=== PATIENT | female | born 1950 | race Caucasian/White ===

== ENCOUNTER 2021-09-24 14:06 | Inpatient (IN) | payer OTHER, MEDICAID ==
[~2021-09-24] VITALS: Ht 167.6 cm; Wt 76.8 kg
[2021-09-24] MEDS ORDERED: IOHEXOL 350 MG/ML 100ML IJ ONE (15:23)
[2021-09-24 15:52] LABS: Basophils # (auto) 0.2 10 ^3/uL (0-0.2); Lymphocytes # (auto) 0.7 10 ^3/uL (0.4-5.4); Monocytes # (auto) 0.3 10 ^3/uL (0-1.3)
[2021-09-24 15:53] LABS: Eosinophils # (auto) 0.2 10 ^3/uL (0-0.8); Eosinophils % (auto) 3.3 % (0.0-7.0); Hematocrit 36.6 % (36.0-46.0); Hemoglobin 11.8 g/dL (12.2-16.2); Lymphocytes % (auto) 10.9 % (10.0-50.0); Mean Corpuscular Hemoglobin 25.3 pg (28.0-32.0); Mean Corpuscular Hgb Conc. 32.1 g/dL (32.0-36.0); Mean Corpuscular Volume 78.6 fL (80.0-100.0); Monocytes % (auto) 4.2 % (0.0-12.0); Neutrophils # (auto) 4.9 10 ^3/uL (1.6-8.6); Neutrophils % (auto) 78.6 % (37.0-80.0); Red Blood Cells 4.65 10^6/uL (4.0-5.20); Red Cell Distribution Width 17.7 % (11.8-14.3); White Blood Cell 6.3 10^3/uL (4.4-10.8)
[2021-09-24 15:59] LABS: Albumin 2.9 g/dL (3.4-5.0); BUN/Creatinine Ratio 9.4; Calcium 8.6 mg/dL (8.5-10.1); Potassium 4.1 mmol/L (3.5-5.1)
[2021-09-24 16:02] LABS: Bilirubin, Total 0.5 mg/dL (0.2-1.0); Total Protein 7.6 g/dL (6.4-8.2)
[2021-09-24] MEDS ORDERED: HYDROcodone-ACET 10/325MG TAB PO ONE (17:00)
[2021-09-24 18:45] LABS: Urine Bacteria NONE SEEN /hpf (None Seen); Urine Blood TRACE /uL (Negative); Urine Mucus FEW (None Seen); Urine WBC 77 /hpf (0 - 5)
[2021-09-24 19:02] LABS: Urine Specific Gravity > 1.050 (1.001-1.035)
[2021-09-24] MEDS ORDERED: DOCUSATE SOD 100 MG CAP PO PRN (21:45)
[2021-09-24] MEDS ORDERED: HYDROcodone-ACET 5/325MG TAB PO PRN (21:45)
[2021-09-24] MEDS ORDERED: ACETAMINOPHEN 325 MG TAB PO PRN (21:45)
[2021-09-24] MEDS ORDERED: NITROGLYCERIN 0.4 MG SL TAB SL PRN (22:00)
[2021-09-24] MEDS: SODIUM CHLOR 0.9% PF (SALINE LOCK) 10ML VIAL/SYR IV SCH (22:14)
[2021-09-24] MEDS: MORPHINE SULFATE INJECTION 2 MG/ML SYRG IV PRN (22:47)
[2021-09-24 23:37] VITALS: BP 122/48
[2021-09-25] MEDS: ONDANSETRON HCL 4 MG/2 ML VIAL IV PRN ×3 (00:40→16:50)
[2021-09-25] MEDS ORDERED: AMIT75TA62 PO (02:54)
[2021-09-25] MEDS ORDERED: LEVO125T7 PO (02:54)
[2021-09-25] MEDS ORDERED: SERT50TA19 PO (02:54)
[2021-09-25] MEDS ORDERED: GABA300C10 PO (02:54)
[2021-09-25] MEDS ORDERED: ATOR10TA52 PO (02:54)
[2021-09-25] MEDS ORDERED: OXYC15TA PO (02:54)
[2021-09-25] MEDS ORDERED: QUET100T47 PO (02:54)
[2021-09-25] MEDS ORDERED: OMEP20TA PO (02:56)
[2021-09-25] MEDS ORDERED: SUMA50TA2 PO (02:56)
[2021-09-25] MEDS ORDERED: BISM1CHW5 PO (02:56)
[2021-09-25] MEDS: MORPHINE SULFATE 4 MG/ML SYR/VIAL IV PRN ×4 (03:06→21:44)
[2021-09-25] MEDS: SODIUM CHLOR 0.9% PF (SALINE LOCK) 10ML VIAL/SYR IV SCH ×3 (05:57→21:43)
[2021-09-25 06:51] LABS: Basophils # (auto) 0 10 ^3/uL (0-0.2); Eosinophils # (auto) 0.4 10 ^3/uL (0-0.8)
[2021-09-25 06:55] LABS: Basophils % (auto) 0.7 % (0.0-2.0); Eosinophils % (auto) 6.2 % (0.0-7.0); Hematocrit 33.7 % (36.0-46.0); Hemoglobin 10.9 g/dL (12.2-16.2); Lymphocytes # (auto) 1.5 10 ^3/uL (0.4-5.4); Lymphocytes % (auto) 21.4 % (10.0-50.0); Mean Corpuscular Hemoglobin 25.4 pg (28.0-32.0); Mean Corpuscular Hgb Conc. 32.4 g/dL (32.0-36.0); Mean Corpuscular Volume 78.3 fL (80.0-100.0); Monocytes # (auto) 0.4 10 ^3/uL (0-1.3); Monocytes % (auto) 6.1 % (0.0-12.0); Neutrophils # (auto) 4.6 10 ^3/uL (1.6-8.6); Neutrophils % (auto) 65.6 % (37.0-80.0); Red Cell Distribution Width 18.3 % (11.8-14.3)
[2021-09-25 07:01] LABS: Albumin 2.8 g/dL (3.4-5.0); Calcium 8.4 mg/dL (8.5-10.1); Potassium 4.1 mmol/L (3.5-5.1)
[2021-09-25 07:04] LABS: Bilirubin, Total 0.4 mg/dL (0.2-1.0); Total Protein 7.1 g/dL (6.4-8.2)
[2021-09-25 08:46] VITALS: BP 124/66
[2021-09-25] MEDS: FAMOTIDINE (10MG/ML) 2ML VL IV SCH (10:03)
[2021-09-25] MEDS: levoFLOXacin 500MG 100 ML IV SCH (10:09)
[2021-09-25] MEDS ORDERED: ONDA-144 PO (10:41)
[2021-09-25] MEDS ORDERED: TIOT1AER IN (10:41)
[2021-09-25] MEDS ORDERED: POTA10TA51 PO (10:41)
[2021-09-25] MEDS ORDERED: PRED20TA2 PO (10:41)
[2021-09-25] MEDS ORDERED: AMIT10TA8 PO (10:41)
[2021-09-25] MEDS ORDERED: ALBUAER3 IN (10:41)
[2021-09-25] MEDS ORDERED: PRE1T PO (10:41)
[2021-09-25] MEDS ORDERED: BACL10TA PO (10:55)
[2021-09-25] MEDS ORDERED: LOPE1TAB9 PO (10:55)
[2021-09-25 12:40] VITALS: BP 100/59
[2021-09-25] MEDS ORDERED: BACLOFEN 10 MG TAB PO PRN (16:00)
[2021-09-25 16:40] VITALS: BP 134/67
[2021-09-25] MEDS: AMITRIPTYLINE HCL 25 MG TAB PO SCH (21:43)
[2021-09-25] MEDS: QUEtiapine FUMARATE 25 MG TAB PO SCH (21:43)
[2021-09-25] MEDS: SERTRALINE HCL 50 MG TAB PO SCH (21:43)
[2021-09-25 22:00] VITALS: BP 113/64
[2021-09-26 05:00] VITALS: BP 135/67
[2021-09-26] MEDS: SODIUM CHLOR 0.9% PF (SALINE LOCK) 10ML VIAL/SYR IV SCH ×3 (06:27→22:11)
[2021-09-26] MEDS: LEVOTHYROXINE SODIUM 50 MCG TAB PO SCH (06:28)
[2021-09-26 09:00] VITALS: BP 119/64
[2021-09-26] MEDS: MORPHINE SULFATE 4 MG/ML SYR/VIAL IV PRN ×3 (09:02→19:03)
[2021-09-26] MEDS: FAMOTIDINE (10MG/ML) 2ML VL IV SCH (09:30)
[2021-09-26] MEDS: levoFLOXacin 500MG 100 ML IV SCH (09:30)
[2021-09-26 13:00] VITALS: BP 163/92
[2021-09-26 16:00] VITALS: BP 109/49
[2021-09-26 17:30] VITALS: BP 109/49
[2021-09-26] MEDS: QUEtiapine FUMARATE 25 MG TAB PO SCH (22:00)
[2021-09-26] MEDS: AMITRIPTYLINE HCL 25 MG TAB PO SCH (22:12)
[2021-09-26] MEDS: SERTRALINE HCL 50 MG TAB PO SCH (22:12)
[2021-09-26 22:36] VITALS: BP 120/48
[2021-09-27] MEDS: MORPHINE SULFATE 4 MG/ML SYR/VIAL IV PRN ×4 (02:33→21:41)
[2021-09-27 04:50] VITALS: BP 125/53
[2021-09-27] MEDS: SODIUM CHLOR 0.9% PF (SALINE LOCK) 10ML VIAL/SYR IV SCH ×3 (06:50→21:41)
[2021-09-27] MEDS: LEVOTHYROXINE SODIUM 50 MCG TAB PO SCH (06:51)
[2021-09-27] MEDS: FAMOTIDINE (10MG/ML) 2ML VL IV SCH (09:21)
[2021-09-27] MEDS: levoFLOXacin 500MG 100 ML IV SCH (09:21)
[2021-09-27 09:24] VITALS: BP 121/63
[2021-09-27 12:38] VITALS: BP 103/56
[2021-09-27] MEDS ORDERED: PANTOPRAZOLE 40 MG/10 ML VIAL INJ IV ONE (14:00)
[2021-09-27 17:00] VITALS: BP 111/63
[2021-09-27] MEDS: PANTOPRAZOLE 40 MG/10 ML VIAL INJ IV SCH (21:41)
[2021-09-27] MEDS: AMITRIPTYLINE HCL 25 MG TAB PO SCH (21:42)
[2021-09-27] MEDS: SERTRALINE HCL 50 MG TAB PO SCH (21:42)
[2021-09-27] MEDS: QUEtiapine FUMARATE 25 MG TAB PO SCH (21:43)
[2021-09-27 22:00] VITALS: BP 103/56
[2021-09-28 05:00] VITALS: BP 134/61
[2021-09-28] MEDS: MORPHINE SULFATE 4 MG/ML SYR/VIAL IV PRN ×5 (05:45→19:53)
[2021-09-28] MEDS: SODIUM CHLOR 0.9% PF (SALINE LOCK) 10ML VIAL/SYR IV SCH ×3 (06:15→22:48)
[2021-09-28] MEDS: LEVOTHYROXINE SODIUM 50 MCG TAB PO SCH (06:16)
[2021-09-28 06:38] LABS: INR 1.1 (0.9-1.15); Partial Thromboplastin Time 28.7 sec (23.6-33.0)
[2021-09-28] MEDS: PANTOPRAZOLE 40 MG/10 ML VIAL INJ IV SCH ×2 (08:48→22:48)
[2021-09-28] MEDS: levoFLOXacin 500MG 100 ML IV SCH (08:48)
[2021-09-28 09:00] VITALS: BP 105/64
[2021-09-28] MEDS: MORPHINE SULFATE INJECTION 2 MG/ML SYRG IV PRN (11:46)
[2021-09-28 13:00] VITALS: BP 101/55
[2021-09-28 17:00] VITALS: BP 115/63
[2021-09-28] MEDS: SUCRALFATE 1 GM/10 ML ORAL SUSP PO SCH ×2 (17:00→22:48)
[2021-09-28 22:00] VITALS: BP 115/66
[2021-09-28] MEDS: QUEtiapine FUMARATE 25 MG TAB PO SCH (22:00)
[2021-09-28] MEDS: SERTRALINE HCL 50 MG TAB PO SCH (22:49)
[2021-09-29] MEDS: AMITRIPTYLINE HCL 25 MG TAB PO SCH ×2 (00:42→21:11)
[2021-09-29] MEDS: ONDANSETRON HCL 4 MG/2 ML VIAL IV PRN ×2 (00:43→17:08)
[2021-09-29] MEDS: MORPHINE SULFATE 4 MG/ML SYR/VIAL IV PRN ×6 (00:43→21:12)
[2021-09-29 05:00] VITALS: BP 114/73
[2021-09-29] MEDS: SODIUM CHLOR 0.9% PF (SALINE LOCK) 10ML VIAL/SYR IV SCH ×3 (06:00→21:11)
[2021-09-29] MEDS: SUCRALFATE 1 GM/10 ML ORAL SUSP PO SCH ×5 (07:00→21:11)
[2021-09-29] MEDS: LEVOTHYROXINE SODIUM 50 MCG TAB PO SCH (07:00)
[2021-09-29 08:00] VITALS: BP 119/63
[2021-09-29] MEDS: PANTOPRAZOLE 40 MG/10 ML VIAL INJ IV SCH ×2 (10:27→21:11)
[2021-09-29] MEDS: levoFLOXacin 500MG 100 ML IV SCH (10:27)
[2021-09-29 12:00] VITALS: BP 121/50
[2021-09-29] MEDS ORDERED: fentaNYL CITRATE 100 MCG/2 ML VL ONE (12:54)
[2021-09-29] MEDS ORDERED: MIDAZOLAM HCL 2MG/2ML 2ml VIAL (1mg/ml) ONE (12:54)
[2021-09-29] MEDS ORDERED: DexAMETHasone SOD PHOS 10MG/1ML VIAL INJ ONE (13:05)
[2021-09-29] MEDS ORDERED: PROPOFOL 10 MG/ML 20 ML IV ONE (13:05)
[2021-09-29] MEDS ORDERED: HYDROmorphone HCL 2 MG/ML VL IV PRN (13:15)
[2021-09-29] MEDS ORDERED: ONDANSETRON HCL 4 MG/2 ML VIAL IV PRN (13:15)
[2021-09-29] MEDS ORDERED: LABETALOL HCL 5 MG/ML 4ML SYRINGE IV PRN (13:15)
[2021-09-29] MEDS ORDERED: MORPHINE SULFATE 4 MG/ML SYR/VIAL IV PRN (13:15)
[2021-09-29] MEDS ORDERED: ePHEDrine SULFATE 50 MG/ML AMP IV PRN (13:15)
[2021-09-29] MEDS ORDERED: MIDAZOLAM HCL 2MG/2ML 2ml VIAL (1mg/ml) IV PRN (13:15)
[2021-09-29] MEDS ORDERED: HYDROmorphone HCL 2 MG/ML VL ONE (13:29)
[2021-09-29 17:40] VITALS: BP 105/49
[2021-09-29 21:00] VITALS: BP 129/59
[2021-09-29] MEDS: QUEtiapine FUMARATE 25 MG TAB PO SCH (21:11)
[2021-09-29] MEDS: SERTRALINE HCL 50 MG TAB PO SCH (21:11)
[2021-09-30] MEDS: MORPHINE SULFATE 4 MG/ML SYR/VIAL IV PRN ×4 (03:03→16:06)
[2021-09-30 03:04] VITALS: BP 123/60
[2021-09-30 05:00] VITALS: BP 108/48
[2021-09-30] MEDS: SODIUM CHLOR 0.9% PF (SALINE LOCK) 10ML VIAL/SYR IV SCH ×2 (06:15→14:00)
[2021-09-30] MEDS: LEVOTHYROXINE SODIUM 50 MCG TAB PO SCH (06:15)
[2021-09-30] MEDS: SUCRALFATE 1 GM/10 ML ORAL SUSP PO SCH ×2 (06:15→11:57)
[2021-09-30 09:00] VITALS: BP 104/54
[2021-09-30] MEDS: PANTOPRAZOLE 40 MG/10 ML VIAL INJ IV SCH (09:40)
[2021-09-30] MEDS: levoFLOXacin 500MG 100 ML IV SCH (09:40)
[2021-09-30 13:00] VITALS: BP 118/63
[2021-09-30] MEDS ORDERED: CIP250T GT (13:12)
[2021-09-30] MEDS ORDERED: SUCR1SUS10 PO (13:12)
[2021-09-30] MEDS ORDERED: PANT40TA2 PO (13:13)
[2021-09-30 16:06] VITALS: BP 118/53
== END 2021-09-30 16:30 | disposition home or self-care (01) | DRG 391 ==
LOC: EDBD 14:06 → ER 14:06 → OVERFLOW 21:53 → WEST WING 23:27
PROVIDERS: ADMIT Nurse Practitioner Family; ATTEND Internal Medicine Geriatric Medicine
PROC: 0DB68ZX Excision of Stomach, Via Natural or Artificial Opening Endoscopic, Diagnostic (ICD-10-PCS; principal; 2021-09-29 12:55)
DX: K29.00 Acute gastritis without bleeding (principal); I71.02 Dissection of abdominal aorta; N39.0 Urinary tract infection, site not specified; E44.1 Mild protein-calorie malnutrition; N28.1 Cyst of kidney, acquired; N20.0 Calculus of kidney; Z20.822 Contact with and (suspected) exposure to COVID-19; E88.09 Other disorders of plasma-protein metabolism, not elsewhere classified; J44.9 Chronic obstructive pulmonary disease, unspecified; Z68.27 Body mass index [BMI] 27.0-27.9, adult; Z90.49 Acquired absence of other specified parts of digestive tract; Z98.84 Bariatric surgery status; Z90.710 Acquired absence of both cervix and uterus; Z80.0 Family history of malignant neoplasm of digestive organs; Z87.11 Personal history of peptic ulcer disease; Z87.442 Personal history of urinary calculi; Z88.0 Allergy status to penicillin
CPT/HCPCS: 36415; 71045; 74175; 80053; 81001; 83036; 83690; 84484; 85025; 85610; 85730; 87081; 87086; 93005; 96374; C9113; G0378; J1100; J1956; J2250; J2405; J2704; J3490

== ENCOUNTER 2021-10-15 14:56 | Inpatient (IN) | payer OTHER, MEDICAID ==
[~2021-10-15] VITALS: Ht 167.6 cm; Wt 79.1 kg
[~2021-10-15 14:56] MED LIST: ALBUAER3 IN; AMIT10TA8 PO; ATOR10TA52 PO; BACL10TA PO; BISM1CHW5 PO; CIP250T GT; GABA300C10 PO; LEVO125T7 PO; LOPE1TAB9 PO; OMEP20TA PO; ONDA-144 PO; OXYC15TA PO; PANT40TA2 PO; POTA10TA51 PO; PRED20TA2 PO; QUET100T47 PO; SERT50TA19 PO; SUCR1SUS10 PO; SUMA50TA2 PO; TIOT1AER IN
[2021-10-15] MEDS ORDERED: SODIUM CHLORIDE 0.9% 500 ML IVB ONE (15:15)
[2021-10-15 15:46] LABS: Basophils # (auto) 0 10 ^3/uL (0-0.2); Basophils % (auto) 0.6 % (0.0-2.0); Eosinophils # (auto) 0.1 10 ^3/uL (0-0.8); Eosinophils % (auto) 0.8 % (0.0-7.0); Hematocrit 40.2 % (36.0-46.0); Hemoglobin 12.9 g/dL (12.2-16.2); Lymphocytes # (auto) 0.9 10 ^3/uL (0.4-5.4); Mean Corpuscular Hemoglobin 25.3 pg (28.0-32.0); Mean Corpuscular Hgb Conc. 31.9 g/dL (32.0-36.0); Mean Corpuscular Volume 79.2 fL (80.0-100.0); Monocytes # (auto) 0.5 10 ^3/uL (0-1.3); Monocytes % (auto) 7.2 % (0.0-12.0); Neutrophils # (auto) 4.9 10 ^3/uL (1.6-8.6); Neutrophils % (auto) 77.4 % (37.0-80.0); Nucleated Red Blood Cells % 0.1 %; Red Blood Cells 5.08 10^6/uL (4.0-5.20); Red Cell Distribution Width 18.4 % (11.8-14.3); White Blood Cell 6.4 10^3/uL (4.4-10.8)
[2021-10-15] MEDS ORDERED: MORPHINE SULFATE 4 MG/ML SYR/VIAL IV ONE (16:00)
[2021-10-15] MEDS ORDERED: ONDANSETRON HCL 4 MG/2 ML VIAL IV ONE (16:00)
[2021-10-15 16:03] LABS: Calcium 9.1 mg/dL (8.5-10.1); Potassium 3.2 mmol/L (3.5-5.1)
[2021-10-15 16:08] LABS: BUN/Creatinine Ratio 9.5; Bilirubin, Total 0.5 mg/dL (0.2-1.0); Total Protein 7.5 g/dL (6.4-8.2)
[2021-10-15] MEDS ORDERED: POTASSIUM CHL 20MEQ/100ML 100 ML IV ONE (17:00)
[2021-10-15] MEDS ORDERED: MORPHINE SULFATE INJECTION 2 MG/ML SYRG IV PRN (18:00)
[2021-10-15] MEDS ORDERED: NITROGLYCERIN 0.4 MG SL TAB SL PRN (18:00)
[2021-10-15] MEDS ORDERED: KETOROLAC TROMETH 30 MG/ML 1ML VIAL IV PRN (18:15)
[2021-10-15] MEDS ORDERED: ONDANSETRON HCL 4 MG/2 ML VIAL IV PRN ×2 (18:15→19:30)
[2021-10-15] MEDS ORDERED: SODIUM CHLORIDE 0.9% 1,000 ML IV SCH (18:15)
[2021-10-15] MEDS ORDERED: hydrALAZINE HCL 20 MG/ML VL IV PRN (19:30)
[2021-10-15] MEDS ORDERED: LORazepam 0.5 MG TAB PO PRN (19:30)
[2021-10-15] MEDS ORDERED: DOCUSATE SOD 100 MG CAP PO PRN (19:30)
[2021-10-15] MEDS ORDERED: BACLOFEN 10 MG TAB PO PRN (19:30)
[2021-10-15] MEDS ORDERED: cefTRIAXone 1GM/50ML D5W 50 ML IV ONE (19:30)
[2021-10-15] MEDS ORDERED: PANTOPRAZOLE 40 MG/10 ML VIAL INJ IV ONE (19:30)
[2021-10-15 19:59] LABS: Magnesium 1.6 mg/dL (1.6-2.6); Phosphorus 1.6 mg/dL (2.5-4.90)
[2021-10-15 20:07] LABS: INR 1.13 (0.9-1.15); Partial Thromboplastin Time 27.3 sec (23.6-33.0)
[2021-10-15 20:18] VITALS: BP 135/74
[2021-10-15] MEDS: MORPHINE SULFATE 4 MG/ML SYR/VIAL IV PRN (20:30)
[2021-10-15] MEDS: SODIUM CHLORIDE 0.9% 1,000 ML IV SCH (20:34)
[2021-10-15] MEDS: POTASSIUM CHL 20 Meq TABLET PO SCH (20:34)
[2021-10-15] MEDS: SUCRALFATE 1 GM/10 ML ORAL SUSP PO SCH (20:34)
[2021-10-15] MEDS: ATORVASTATIN 20 MG TAB PO SCH (20:35)
[2021-10-15] MEDS: LABETALOL HCL 200 MG TAB PO SCH (20:35)
[2021-10-15] MEDS: QUEtiapine FUMARATE 100 MG TAB PO SCH (20:35)
[2021-10-15 21:26] VITALS: BP 147/77
[2021-10-15 22:00] VITALS: BP 147/77
[2021-10-15] MEDS ORDERED: IPRATROPIUM BROM 0.5 MG/2.5ML INH SOL NEB SCH (22:00)
[2021-10-15] MEDS ORDERED: ATORVASTATIN 20 MG TAB PO SCH (22:00)
[2021-10-15] MEDS ORDERED: IPRATROPIUM BROM 0.5 MG/2.5ML INH SOL NEB PRN (22:15)
[2021-10-15] MEDS: HYDROcodone-ACET 5/325MG TAB PO PRN (23:34)
[2021-10-16] MEDS: MORPHINE SULFATE 4 MG/ML SYR/VIAL IV PRN ×5 (00:24→20:52)
[2021-10-16 04:52] VITALS: BP 91/49
[2021-10-16] MEDS: LEVOTHYROXINE SODIUM 50 MCG TAB PO SCH (06:10)
[2021-10-16] MEDS: SUCRALFATE 1 GM/10 ML ORAL SUSP PO SCH ×4 (06:10→21:01)
[2021-10-16 06:25] LABS: Basophils # (auto) 0 10 ^3/uL (0-0.2); Basophils % (auto) 0.4 % (0.0-2.0); Eosinophils # (auto) 0.1 10 ^3/uL (0-0.8); Eosinophils % (auto) 3.5 % (0.0-7.0); Hematocrit 32.7 % (36.0-46.0); Hemoglobin 10.4 g/dL (12.2-16.2); Lymphocytes # (auto) 1.2 10 ^3/uL (0.4-5.4); Lymphocytes % (auto) 28.7 % (10.0-50.0); Mean Corpuscular Hemoglobin 25.9 pg (28.0-32.0); Mean Corpuscular Hgb Conc. 31.9 g/dL (32.0-36.0); Mean Corpuscular Volume 81.1 fL (80.0-100.0); Monocytes # (auto) 0.3 10 ^3/uL (0-1.3); Monocytes % (auto) 7.5 % (0.0-12.0); Neutrophils # (auto) 2.5 10 ^3/uL (1.6-8.6); Neutrophils % (auto) 59.9 % (37.0-80.0); Nucleated Red Blood Cells % 0.1 %; Red Blood Cells 4.03 10^6/uL (4.0-5.20); Red Cell Distribution Width 18.5 % (11.8-14.3); White Blood Cell 4.1 10^3/uL (4.4-10.8)
[2021-10-16 06:34] LABS: INR 1.16 (0.9-1.15); Partial Thromboplastin Time 27.6 sec (23.6-33.0)
[2021-10-16 06:44] LABS: Potassium 3.6 mmol/L (3.5-5.1)
[2021-10-16 06:59] LABS: Albumin 2.4 g/dL (3.4-5.0); BUN/Creatinine Ratio 11.1; Bilirubin, Total 0.3 mg/dL (0.2-1.0); CRP High Sensitivity 0.57 mg/dL (< 0.3); Magnesium 1.9 mg/dL (1.6-2.6); Phosphorus 4.7 mg/dL (2.5-4.90)
[2021-10-16 07:08] LABS: Thyroid Stimulating Hormone 0.16 uIU/mL (0.358-3.74)
[2021-10-16 08:00] VITALS: BP 93/36
[2021-10-16 09:00] VITALS: BP 93/36
[2021-10-16] MEDS: cefTRIAXone 1GM/50ML D5W 50 ML IV SCH (09:29)
[2021-10-16] MEDS: SERTRALINE HCL 50 MG TAB PO SCH (09:51)
[2021-10-16] MEDS: PANTOPRAZOLE 40 MG/10 ML VIAL INJ IV SCH (09:51)
[2021-10-16] MEDS: POTASSIUM CHL 20 Meq TABLET PO SCH ×2 (09:51→21:01)
[2021-10-16] MEDS: ASPirin 81 mg TAB PO SCH (09:51)
[2021-10-16] MEDS: GABAPENTIN 300 MG CAP PO SCH (09:51)
[2021-10-16] MEDS: HYDROcodone-ACET 5/325MG TAB PO PRN ×2 (09:52→19:48)
[2021-10-16] MEDS: CHOLECALCIFEROL (VITD3) 2,000 UNIT CAP/TAB PO SCH (09:52)
[2021-10-16] MEDS: ENOXAPARIN SOD 40 MG/0.4 ML SYRINGE SC SCH (09:53)
[2021-10-16] MEDS ORDERED: AMITRIPTYLINE HCL 10 MG TAB PO SCH (10:00)
[2021-10-16] MEDS ORDERED: ASPirin 81 mg TAB PO SCH (10:00)
[2021-10-16] MEDS: LABETALOL HCL 200 MG TAB PO SCH ×2 (10:00→21:02)
[2021-10-16] MEDS: SODIUM CHLORIDE 0.9% 1,000 ML IV SCH ×2 (12:58→21:20)
[2021-10-16 13:00] VITALS: BP 101/39
[2021-10-16] MEDS: AMITRIPTYLINE HCL 25 MG TAB PO SCH (13:00)
[2021-10-16 17:00] VITALS: BP 100/57
[2021-10-16] MEDS: QUEtiapine FUMARATE 100 MG TAB PO SCH (21:01)
[2021-10-16] MEDS: ATORVASTATIN 20 MG TAB PO SCH (21:02)
[2021-10-16 21:24] VITALS: BP 102/62
[2021-10-17] MEDS: MORPHINE SULFATE 4 MG/ML SYR/VIAL IV PRN ×7 (00:47→23:19)
[2021-10-17] MEDS: SUCRALFATE 1 GM/10 ML ORAL SUSP PO SCH ×4 (05:43→21:08)
[2021-10-17] MEDS: LEVOTHYROXINE SODIUM 50 MCG TAB PO SCH (05:43)
[2021-10-17 08:09] VITALS: BP 111/59
[2021-10-17 09:00] VITALS: BP 143/77
[2021-10-17] MEDS: cefTRIAXone 1GM/50ML D5W 50 ML IV SCH (09:11)
[2021-10-17] MEDS: ASPirin 81 mg TAB PO SCH (10:00)
[2021-10-17] MEDS: LABETALOL HCL 200 MG TAB PO SCH ×2 (10:00→21:11)
[2021-10-17] MEDS: ENOXAPARIN SOD 40 MG/0.4 ML SYRINGE SC SCH (10:56)
[2021-10-17] MEDS: CHOLECALCIFEROL (VITD3) 2,000 UNIT CAP/TAB PO SCH (10:56)
[2021-10-17] MEDS: PANTOPRAZOLE 40 MG/10 ML VIAL INJ IV SCH (10:56)
[2021-10-17] MEDS: AMITRIPTYLINE HCL 25 MG TAB PO SCH (10:57)
[2021-10-17] MEDS: SERTRALINE HCL 50 MG TAB PO SCH (10:57)
[2021-10-17] MEDS: POTASSIUM CHL 20 Meq TABLET PO SCH ×2 (10:57→21:09)
[2021-10-17] MEDS: GABAPENTIN 300 MG CAP PO SCH (10:57)
[2021-10-17 13:00] VITALS: BP 105/53
[2021-10-17] MEDS: SODIUM CHLORIDE 0.9% 1,000 ML IV SCH (13:27)
[2021-10-17 16:51] VITALS: BP 102/50
[2021-10-17] MEDS: QUEtiapine FUMARATE 100 MG TAB PO SCH (21:09)
[2021-10-17] MEDS: ATORVASTATIN 20 MG TAB PO SCH (21:11)
[2021-10-17 22:00] VITALS: BP 124/63
[2021-10-18] MEDS: SODIUM CHLORIDE 0.9% 1,000 ML IV SCH (02:42)
[2021-10-18] MEDS: MORPHINE SULFATE 4 MG/ML SYR/VIAL IV PRN ×3 (03:21→12:23)
[2021-10-18 05:00] VITALS: BP 124/50
[2021-10-18] MEDS: LEVOTHYROXINE SODIUM 50 MCG TAB PO SCH (06:18)
[2021-10-18] MEDS: SUCRALFATE 1 GM/10 ML ORAL SUSP PO SCH ×2 (06:18→12:22)
[2021-10-18 08:03] VITALS: BP 116/69
[2021-10-18 08:43] VITALS: BP 116/69
[2021-10-18] MEDS: PANTOPRAZOLE 40 MG/10 ML VIAL INJ IV SCH (09:43)
[2021-10-18] MEDS: cefTRIAXone 1GM/50ML D5W 50 ML IV SCH (09:43)
[2021-10-18] MEDS: CHOLECALCIFEROL (VITD3) 2,000 UNIT CAP/TAB PO SCH (09:44)
[2021-10-18] MEDS: AMITRIPTYLINE HCL 25 MG TAB PO SCH (09:44)
[2021-10-18] MEDS: GABAPENTIN 300 MG CAP PO SCH (09:44)
[2021-10-18] MEDS: POTASSIUM CHL 20 Meq TABLET PO SCH (09:44)
[2021-10-18] MEDS: ENOXAPARIN SOD 40 MG/0.4 ML SYRINGE SC SCH (09:45)
[2021-10-18] MEDS: SERTRALINE HCL 50 MG TAB PO SCH (09:45)
[2021-10-18] MEDS: LABETALOL HCL 200 MG TAB PO SCH (09:55)
[2021-10-18] MEDS: ASPirin 81 mg TAB PO SCH (09:55)
[2021-10-18] MEDS ORDERED: SULF400T11 PO (12:42)
[2021-10-18 13:03] VITALS: BP 116/71
[2021-10-18 13:39] VITALS: BP 116/71
== END 2021-10-18 15:04 | disposition home or self-care (01) | DRG 690 ==
LOC: EDUNIT# 14:56 → EDBD 14:56 → ER 14:56 → OVERFLOW 17:54 → CENTRAL 19:48
PROVIDERS: ADMIT Hospitalist; ATTEND Internal Medicine Geriatric Medicine
DX: N39.0 Urinary tract infection, site not specified (principal); F11.20 Opioid dependence, uncomplicated; I16.9 Hypertensive crisis, unspecified; E78.5 Hyperlipidemia, unspecified; E87.6 Hypokalemia; E88.09 Other disorders of plasma-protein metabolism, not elsewhere classified; F17.200 Nicotine dependence, unspecified, uncomplicated; F41.9 Anxiety disorder, unspecified; G89.4 Chronic pain syndrome; I10 Essential (primary) hypertension; Z20.822 Contact with and (suspected) exposure to COVID-19; J44.9 Chronic obstructive pulmonary disease, unspecified; M16.0 Bilateral primary osteoarthritis of hip; N20.0 Calculus of kidney; Z79.899 Other long term (current) drug therapy; Z86.73 Personal history of transient ischemic attack (TIA), and cerebral infarction without residual deficits; Z87.442 Personal history of urinary calculi; Z90.722 Acquired absence of ovaries, bilateral; Z90.710 Acquired absence of both cervix and uterus; Z90.49 Acquired absence of other specified parts of digestive tract; Z80.9 Family history of malignant neoplasm, unspecified; Z88.0 Allergy status to penicillin; Z88.8 Allergy status to other drugs, medicaments and biological substances; I71.4 Abdominal aortic aneurysm, without rupture
CPT/HCPCS: 36415; 74176; 80053; 80061; 82150; 82306; 82550; 82728; 83615; 83690; 83735; 83880; 84100; 84443; 84484; 85025; 85379; 85610; 85652; 85730; 86141; 87040; 87081; 93005; 96361; 96365; 96375; C9113; G0378; J0696; J2405; J3480

== ENCOUNTER 2024-01-26 08:43 | Inpatient (IN) | payer OTHER ==
[~2024-01-26] VITALS: Ht 167.6 cm; Wt 77.9 kg
[~2024-01-26 08:43] MED LIST changes: +AMIT-400 PO; -AMIT10TA8 PO; -CIP250T GT; +GABA-1250 PO; -GABA300C10 PO; +POTA-36 PO; -POTA10TA51 PO; +SERT-206 PO; -SERT50TA19 PO; -SUCR1SUS10 PO; +SUCR1SUS26 PO; +SULF400T11 PO
[2024-01-26 08:57] VITALS: PULSE 84; RESP 18; O2SAT 97
[2024-01-26] MEDS: SODIUM CHLORIDE 0.9% 1,000 ML IV ONE ×2 (09:35)
[2024-01-26] MEDS: InsuLIN REG 1unit/0.01ml Soln (100units/ml) IV ONE (09:35)
[2024-01-26 09:59] LABS: Basophils # (auto) 0 10 ^3/uL (0-0.2); Basophils % (auto) 0.1 % (0.0-2.0); Eosinophils # (auto) 0 10 ^3/uL (0-0.8); Hematocrit 34.2 % (36.0-46.0); Hemoglobin 10.8 g/dL (12.2-16.2); Lymphocytes # (auto) 0.7 10 ^3/uL (0.4-5.4); Lymphocytes % (auto) 8.4 % (10.0-50.0); Mean Corpuscular Hgb Conc. 31.7 g/dL (32.0-36.0); Mean Corpuscular Volume 75.8 fL (80.0-100.0); Monocytes # (auto) 0.4 10 ^3/uL (0-1.3); Monocytes % (auto) 4.7 % (0.0-12.0); Neutrophils # (auto) 7.4 10 ^3/uL (1.6-8.6); Neutrophils % (auto) 86.8 % (37.0-80.0); Red Blood Cells 4.52 10^6/uL (4.0-5.20); Red Cell Distribution Width 16.9 % (11.8-14.3); White Blood Cell 8.5 10^3/uL (4.4-10.8)
[2024-01-26 10:04] LABS: Chloride 101 mmol/L (98-107); Potassium 4.4 mmol/L (3.5-5.1); Sodium 133 mmol/L (136-145)
[2024-01-26 10:05] LABS: Anion Gap 10 (5-15); Calcium 8.8 mg/dL (8.7-10.4); Carbon Dioxide 22 mmol/L (20-30)
[2024-01-26 10:10] LABS: BUN/Creatinine Ratio 20.4 (10.0-20.0); Blood Urea Nitrogen 19 mg/dL (9-23)
[2024-01-26 10:17] LABS: Urine Bacteria FEW /hpf (None Seen); Urine Blood TRACE /uL (Negative); Urine Clarity Turbid (Clear); Urine Color Colorless (Yellow); Urine Hyaline Cast FEW /lpf (0 - 2); Urine Protein, UAD Negative (Negative); Urine Specific Gravity 1.028 (1.001-1.035); Urine Urobilinogen Normal (Negative); Urine WBC 62 /hpf (0 - 5); Urine pH 5.5 (5.0-9.0)
[2024-01-26 10:23] LABS: Glucose 477 mg/dL (74-106)
[2024-01-26] MEDS ORDERED: ALBUTEROL SULF HFA 90MCG INH 200DOSE IN PRN (12:15)
[2024-01-26] MEDS ORDERED: DOCUSATE SOD 100 MG CAP PO PRN (12:15)
[2024-01-26] MEDS ORDERED: BACLOFEN 10 MG TAB PO PRN (12:15)
[2024-01-26] MEDS: SODIUM CHLORIDE 0.9% 1,000 ML IV SCH (12:15)
[2024-01-26] MEDS ORDERED: NITROGLYCERIN 0.4 MG SL TAB SL PRN (12:15)
[2024-01-26] MEDS ORDERED: DEXTROSE (50%) 50ML SYRG IV PRN (12:15)
[2024-01-26] MEDS ORDERED: OXYCODONE 15 MG PO SCH (12:15)
[2024-01-26] MEDS: ENOXAPARIN SOD 40 MG/0.4 ML SYRINGE SC SCH (12:25)
[2024-01-26] MEDS: oxyCODONE HCL 5MG TAB PO SCH (13:00)
[2024-01-26] MEDS: ONDANSETRON HCL 4 MG/2 ML VIAL IV PRN (14:59)
[2024-01-26] MEDS: InsuLIN REG 1unit/0.01ml Soln (100units/ml) SC SCH ×2 (17:00→22:08)
[2024-01-26] MEDS: ACCU-CHEK COMFORT CURVE STRIP VI SCH (17:00)
[2024-01-26 17:23] VITALS: BP 144/65; PULSE 68; PULSE 72; RESP 18; TEMP 97.4; TEMP 98.3; O2SAT 96
[2024-01-26] MEDS: SUCRALFATE 1 GM/10 ML ORAL SUSP PO SCH (17:34)
[2024-01-26 20:20] VITALS: PULSE 85; RESP 18; O2SAT 98
[2024-01-26 21:00] VITALS: BP 123/45; PULSE 90; RESP 18; TEMP 98.1; O2SAT 95
[2024-01-26] MEDS ORDERED: PATIENTS OWN MEDICATION (Prednisone 20 MG) PO SCH (22:00)
[2024-01-26] MEDS: QUEtiapine FUMARATE 100 MG TAB PO SCH (22:03)
[2024-01-26] MEDS: [UNRECOGNIZED DRUG - OTHER] IN SCH (22:03)
[2024-01-26] MEDS: PANTOPRAZOLE 40 MG TAB PO SCH (22:03)
[2024-01-26] MEDS: ATORVASTATIN 20 MG TAB PO SCH (22:04)
[2024-01-26] MEDS: SERTRALINE HCL 50 MG TAB PO SCH (22:04)
[2024-01-26] MEDS: predniSONE 20 MG TAB PO SCH (22:04)
[2024-01-27] VITALS (9 sets, daily range): BP systolic 117–141; BP diastolic 38–58; PULSE 60–82; RESP 16–18; TEMP 36.6; O2SAT 90–100
[2024-01-27] MEDS: LEVOTHYROXINE SODIUM 25 MCG TAB PO SCH (06:19)
[2024-01-27] MEDS: LEVOTHYROXINE SODIUM 100 MCG TAB PO SCH (06:19)
[2024-01-27 06:45] LABS: Basophils # (auto) 0 10 ^3/uL (0-0.2); Eosinophils # (auto) 0 10 ^3/uL (0-0.8); Lymphocytes # (auto) 0.4 10 ^3/uL (0.4-5.4); Lymphocytes % (auto) 7.9 % (10.0-50.0); Monocytes # (auto) 0.1 10 ^3/uL (0-1.3)
[2024-01-27 06:50] LABS: Basophils % (auto) 0.1 % (0.0-2.0); Hematocrit 31.2 % (36.0-46.0); Mean Corpuscular Hemoglobin 24.5 pg (28.0-32.0); Mean Corpuscular Hgb Conc. 32.2 g/dL (32.0-36.0); Monocytes % (auto) 2.3 % (0.0-12.0); Neutrophils # (auto) 4.8 10 ^3/uL (1.6-8.6); Neutrophils % (auto) 89.7 % (37.0-80.0); Red Cell Distribution Width 16.8 % (11.8-14.3); White Blood Cell 5.3 10^3/uL (4.4-10.8)
[2024-01-27 06:53] LABS: Alanine Aminotransferase 16 U/L (7-40); Alkaline Phosphatase 107 U/L (46-116); Anion Gap 10 (5-15); BUN/Creatinine Ratio 18.6 (10.0-20.0); Blood Urea Nitrogen 19 mg/dL (9-23); Calcium 8.6 mg/dL (8.7-10.4); Carbon Dioxide 21 mmol/L (20-30); Chloride 103 mmol/L (98-107); Glucose 393 mg/dL (74-106); Potassium 4.3 mmol/L (3.5-5.1); Sodium 134 mmol/L (136-145)
[2024-01-27 06:54] LABS: Albumin 3.4 g/dL (3.2-4.8)
[2024-01-27 06:55] LABS: Aspartate Aminotransferase 28 U/L (13-40); Bilirubin, Total 0.3 mg/dL (0.2-1.0); Total Protein 6.8 g/dL (5.7-8.2)
[2024-01-27] MEDS ORDERED: LEVOTHYROXINE SODIUM 0.125 MG PO SCH (07:00)
[2024-01-27] MEDS: AMITRIPTYLINE HCL 10 MG TAB PO SCH (09:24)
[2024-01-27] MEDS: GABAPENTIN 300 MG CAP PO SCH (09:26)
[2024-01-27] MEDS ORDERED: PATIENTS OWN MEDICATION (Atorvastatin Calcium 1 TAB) PO SCH (10:00)
[2024-01-27] MEDS ORDERED: METF-929 PO (15:20)
[2024-01-27] MEDS ORDERED: NITR-87 PO (15:23)
[2024-01-27] MEDS ORDERED: CIPR-273 PO (19:15)
[2024-01-28 01:00] VITALS: BP 125/47; PULSE 78; RESP 17; TEMP 97.8; O2SAT 90
[2024-01-28 04:48] VITALS: BP 112/55; PULSE 75; RESP 18; TEMP 97.9; O2SAT 90
[2024-01-28 07:35] VITALS: PULSE 70; RESP 16; O2SAT 90
[2024-01-28 09:00] VITALS: BP 137/68; PULSE 77; RESP 14; TEMP 99.1; O2SAT 91
[2024-01-28 13:00] VITALS: BP 139/71; PULSE 79; RESP 14; TEMP 98.3; O2SAT 94
== END 2024-01-28 15:15 | disposition home or self-care (01) | DRG 638 ==
LOC: EDBD 08:43 → ER 08:43 → OVERFLOW 12:08 → EAST 17:25
PROVIDERS: ADMIT Nurse Practitioner Family; ATTEND Internal Medicine Geriatric Medicine
DX: E09.65 Drug or chemical induced diabetes mellitus with hyperglycemia (principal); N30.01 Acute cystitis with hematuria; F32.A Depression, unspecified; F41.9 Anxiety disorder, unspecified; G89.4 Chronic pain syndrome; I10 Essential (primary) hypertension; I71.40 Abdominal aortic aneurysm, without rupture, unspecified; J44.9 Chronic obstructive pulmonary disease, unspecified; G47.9 Sleep disorder, unspecified; E78.2 Mixed hyperlipidemia; T38.0X5A Adverse effect of glucocorticoids and synthetic analogues, initial encounter; G43.909 Migraine, unspecified, not intractable, without status migrainosus; M47.812 Spondylosis without myelopathy or radiculopathy, cervical region; K22.70 Barrett's esophagus without dysplasia; Z88.0 Allergy status to penicillin; Z88.8 Allergy status to other drugs, medicaments and biological substances; Z90.710 Acquired absence of both cervix and uterus; Z85.51 Personal history of malignant neoplasm of bladder; Z87.442 Personal history of urinary calculi; Y92.89 Other specified places as the place of occurrence of the external cause
CPT/HCPCS: 36415; 80048; 80053; 81001; 82010; 82962; 83036; 85025; 93005; 96361; 96374; G0378; J1815; J2405

== ENCOUNTER 2024-02-09 17:23 | Inpatient (IN) | payer OTHER ==
[~2024-02-09] VITALS: Ht 167.6 cm; Wt 73.4 kg
[~2024-02-09 17:23] MED LIST changes: +CIPR-273 PO; +METF-929 PO; -PRED20TA2 PO
[2024-02-09 19:48] LABS: Basophils # (auto) 0 10 ^3/uL (0-0.2); Eosinophils # (auto) 0 10 ^3/uL (0-0.8); Eosinophils % (auto) 0.2 % (0.0-7.0); Hematocrit 39.6 % (36.0-46.0); Lymphocytes # (auto) 0.4 10 ^3/uL (0.4-5.4)
[2024-02-09] MEDS: SODIUM CHLORIDE 0.9% 1,000 ML IV ONE (19:48)
[2024-02-09] MEDS: ONDANSETRON HCL 4 MG/2 ML VIAL IV ONE (19:48)
[2024-02-09 19:50] LABS: Basophils % (auto) 0.6 % (0.0-2.0); Hemoglobin 12.4 g/dL (12.2-16.2); Lymphocytes % (auto) 5.9 % (10.0-50.0); Mean Corpuscular Hemoglobin 23.7 pg (28.0-32.0); Mean Corpuscular Hgb Conc. 31.2 g/dL (32.0-36.0); Mean Corpuscular Volume 75.9 fL (80.0-100.0); Monocytes # (auto) 0.3 10 ^3/uL (0-1.3); Monocytes % (auto) 4.6 % (0.0-12.0); Neutrophils # (auto) 6.4 10 ^3/uL (1.6-8.6); Neutrophils % (auto) 88.7 % (37.0-80.0); Nucleated Red Blood Cells % 0.3 %; Red Blood Cells 5.22 10^6/uL (4.0-5.20); Red Cell Distribution Width 17.2 % (11.8-14.3); White Blood Cell 7.2 10^3/uL (4.4-10.8)
[2024-02-09 20:11] LABS: Alanine Aminotransferase 24 U/L (7-40); Albumin 3.8 g/dL (3.2-4.8); Alkaline Phosphatase 118 U/L (46-116); Anion Gap 8 (5-15); Aspartate Aminotransferase 49 U/L (13-40); BUN/Creatinine Ratio 9.7 (10.0-20.0); Bilirubin, Total 1.1 mg/dL (0.2-1.0); Blood Urea Nitrogen 9 mg/dL (9-23); Calcium 8.8 mg/dL (8.7-10.4); Carbon Dioxide 23 mmol/L (20-30); Chloride 104 mmol/L (98-107); Glucose 149 mg/dL (74-106); Lipase 126 U/L (12-53); Potassium 4.2 mmol/L (3.5-5.1); Sodium 135 mmol/L (136-145)
[2024-02-09 20:12] LABS: Total Protein 7.5 g/dL (5.7-8.2)
[2024-02-09] MEDS: traMADol HCL 50 MG TAB PO ONE (20:55)
[2024-02-09] MEDS ORDERED: DEXTROSE (50%) 50ML SYRG IV PRN (22:00)
[2024-02-09] MEDS ORDERED: IBUPROFEN 600 MG TAB PO PRN (22:00)
[2024-02-09] MEDS ORDERED: ALBUTEROL SULF 2.5 MG/0.5ML(0.5%) NEB SOLN NEB PRN (22:00)
[2024-02-09] MEDS ORDERED: DOCUSATE SOD 100 MG CAP PO PRN (22:00)
[2024-02-09] MEDS: ATORVASTATIN 20 MG TAB PO SCH (23:06)
[2024-02-09] MEDS: SODIUM CHLORIDE 0.9% 1,000 ML IV SCH (23:07)
[2024-02-09] MEDS: PANTOPRAZOLE 40 MG/10 ML VIAL INJ IV ONE (23:09)
[2024-02-09 23:30] VITALS: PULSE 82; RESP 25; O2SAT 97
[2024-02-09] MEDS: ACCU-CHEK COMFORT CURVE STRIP VI SCH (23:41)
[2024-02-09] MEDS: InsuLIN REG 1unit/0.01ml Soln (100units/ml) SC SCH (23:42)
[2024-02-09] MEDS: ONDANSETRON HCL 4 MG/2 ML VIAL IV PRN (23:44)
[2024-02-10] VITALS (12 sets, daily range): BP systolic 99–112; BP diastolic 46–64; PULSE 62–86; RESP 16–20; TEMP 97.8–99.7; O2SAT 92–97
[2024-02-10] MEDS ORDERED: MORPHINE SULFATE INJ 2 MG/ml SYRG IV PRN
[2024-02-10] MEDS ORDERED: NITROGLYCERIN 0.4 MG SL TAB SL PRN
[2024-02-10] MEDS: SODIUM CHLORIDE 0.9% 500 ML IV ONE (03:21)
[2024-02-10 04:34] LABS: Basophils # (auto) 0 10 ^3/uL (0-0.2); Basophils % (auto) 0.3 % (0.0-2.0); Eosinophils # (auto) 0 10 ^3/uL (0-0.8); Eosinophils % (auto) 0.5 % (0.0-7.0); Hematocrit 31.2 % (36.0-46.0); Hemoglobin 9.9 g/dL (12.2-16.2); Lymphocytes # (auto) 0.8 10 ^3/uL (0.4-5.4); Lymphocytes % (auto) 21.7 % (10.0-50.0); Mean Corpuscular Hemoglobin 23.8 pg (28.0-32.0); Mean Corpuscular Hgb Conc. 31.7 g/dL (32.0-36.0); Mean Corpuscular Volume 75.1 fL (80.0-100.0); Monocytes # (auto) 0.4 10 ^3/uL (0-1.3); Monocytes % (auto) 10.6 % (0.0-12.0); Neutrophils # (auto) 2.4 10 ^3/uL (1.6-8.6); Neutrophils % (auto) 66.9 % (37.0-80.0); Nucleated Red Blood Cells % 0.4 %; Red Blood Cells 4.15 10^6/uL (4.0-5.20); White Blood Cell 3.5 10^3/uL (4.4-10.8)
[2024-02-10 04:54] LABS: Alanine Aminotransferase 18 U/L (7-40); Alkaline Phosphatase 90 U/L (46-116); Calcium 7.8 mg/dL (8.7-10.4); Carbon Dioxide 25 mmol/L (20-30); Chloride 108 mmol/L (98-107)
[2024-02-10 04:55] LABS: Anion Gap 6 (5-15); Aspartate Aminotransferase 32 U/L (13-40); BUN/Creatinine Ratio 13.1 (10.0-20.0); Bilirubin, Total 0.7 mg/dL (0.2-1.0); Blood Urea Nitrogen 11 mg/dL (9-23); Glucose 108 mg/dL (74-106); Potassium 3.5 mmol/L (3.5-5.1); Sodium 139 mmol/L (136-145)
[2024-02-10 05:01] LABS: Urine Bacteria FEW /hpf (None Seen); Urine Blood 2+ /uL (Negative); Urine Clarity Turbid (Clear); Urine Color Yellow (Yellow); Urine Mucus FEW (None Seen); Urine Protein, UAD TRACE (Negative); Urine Specific Gravity 1.017 (1.001-1.035); Urine Urobilinogen Normal (Negative); Urine WBC 320 /hpf (0 - 5)
[2024-02-10] MEDS: LEVOTHYROXINE SODIUM 50 MCG TAB PO SCH (06:05)
[2024-02-10] MEDS: PANTOPRAZOLE 40 MG/10 ML VIAL INJ IV SCH (08:41)
[2024-02-10] MEDS: CIPROFLOXACIN HYDROCHLORIDE 250 MG TAB PO ONE (12:38)
[2024-02-10] MEDS: HYDROcodone-ACET 5/325MG TAB PO PRN (15:20)
[2024-02-10] MEDS: CIPROFLOXACIN HYDROCHLORIDE 250 MG TAB PO SCH (21:19)
[2024-02-11] VITALS (12 sets, daily range): BP systolic 95–122; BP diastolic 43–53; PULSE 60–82; RESP 18–20; TEMP 97–98.5; O2SAT 0–100
[2024-02-11 06:45] LABS: Basophils # (auto) 0 10 ^3/uL (0-0.2); Basophils % (auto) 0.3 % (0.0-2.0); Eosinophils # (auto) 0.1 10 ^3/uL (0-0.8); Hemoglobin 9.3 g/dL (12.2-16.2); Lymphocytes # (auto) 0.7 10 ^3/uL (0.4-5.4); Monocytes # (auto) 0.3 10 ^3/uL (0-1.3); Neutrophils # (auto) 1.3 10 ^3/uL (1.6-8.6); Nucleated Red Blood Cells % 0.2 %; White Blood Cell 2.4 10^3/uL (4.4-10.8)
[2024-02-11 06:47] LABS: Eosinophils % (auto) 4.4 % (0.0-7.0); Hematocrit 29.2 % (36.0-46.0); Lymphocytes % (auto) 29.2 % (10.0-50.0); Mean Corpuscular Hgb Conc. 31.7 g/dL (32.0-36.0); Mean Corpuscular Volume 75.5 fL (80.0-100.0); Neutrophils % (auto) 54.1 % (37.0-80.0); Red Blood Cells 3.88 10^6/uL (4.0-5.20); Red Cell Distribution Width 17.2 % (11.8-14.3)
[2024-02-11 06:57] LABS: Alanine Aminotransferase 11 U/L (7-40); Alkaline Phosphatase 87 U/L (46-116); Anion Gap 2 (5-15); Blood Urea Nitrogen 7 mg/dL (9-23); Calcium 7.9 mg/dL (8.7-10.4); Carbon Dioxide 25 mmol/L (20-30); Chloride 113 mmol/L (98-107); Glucose 112 mg/dL (74-106); Magnesium 1.5 mg/dL (1.6-2.6); Potassium 3.5 mmol/L (3.5-5.1); Sodium 140 mmol/L (136-145)
[2024-02-11 06:58] LABS: Aspartate Aminotransferase 31 U/L (13-40)
[2024-02-11 06:59] LABS: Albumin 2.7 g/dL (3.2-4.8); Bilirubin, Total 0.3 mg/dL (0.2-1.0); Total Protein 5.3 g/dL (5.7-8.2)
[2024-02-11] MEDS: MAGNESIUM OXIDE 400 MG TAB PO ONE ×2 (10:30→12:41)
[2024-02-11] MEDS: POTASSIUM CHL 20 Meq TABLET PO ONE (11:40)
[2024-02-11] MEDS: POTASSIUM EFFERVESENT TAB 25 MEQ PO ONE (12:41)
[2024-02-12] VITALS (10 sets, daily range): BP systolic 108–139; BP diastolic 52–71; PULSE 57–78; RESP 16–18; TEMP 97.2–98.1; O2SAT 94–96
[2024-02-12 07:06] LABS: Anion Gap 4 (5-15); Carbon Dioxide 25 mmol/L (20-30); Chloride 113 mmol/L (98-107); Potassium 3.7 mmol/L (3.5-5.1); Sodium 142 mmol/L (136-145)
[2024-02-12 07:11] LABS: Glucose 95 mg/dL (74-106)
[2024-02-12 07:12] LABS: Magnesium 1.5 mg/dL (1.6-2.6)
[2024-02-12 07:19] LABS: BUN/Creatinine Ratio 5.9 (10.0-20.0); Blood Urea Nitrogen < 5 mg/dL (9-23)
[2024-02-12] MEDS ORDERED: CIPR-273 PO (11:17)
[2024-02-12] MEDS ORDERED: ZOFR4T PO (11:17)
[2024-02-12] MEDS ORDERED: PANT40TA2 PO (13:07)
[2024-02-12] MEDS: MAGNESIUM SULFATE 1GM/100ML 100 ML IV SCH (13:24)
== END 2024-02-12 19:34 | disposition home or self-care (01) | DRG 392 ==
LOC: ER 17:23 → TELE 23:48 → TELE-WESTW 02-10 05:30
PROVIDERS: ADMIT Nurse Practitioner Family; ATTEND Internal Medicine Geriatric Medicine
DX: A08.4 Viral intestinal infection, unspecified (principal); N39.0 Urinary tract infection, site not specified; E03.9 Hypothyroidism, unspecified; E11.9 Type 2 diabetes mellitus without complications; E78.5 Hyperlipidemia, unspecified; I10 Essential (primary) hypertension; J44.9 Chronic obstructive pulmonary disease, unspecified; K21.9 Gastro-esophageal reflux disease without esophagitis; N20.0 Calculus of kidney; Z88.0 Allergy status to penicillin; Z88.2 Allergy status to sulfonamides; Z90.49 Acquired absence of other specified parts of digestive tract; Z90.710 Acquired absence of both cervix and uterus; Z86.79 Personal history of other diseases of the circulatory system; Z87.891 Personal history of nicotine dependence; Z82.49 Family history of ischemic heart disease and other diseases of the circulatory system; Z80.9 Family history of malignant neoplasm, unspecified; Z79.899 Other long term (current) drug therapy; I71.40 Abdominal aortic aneurysm, without rupture, unspecified; Z79.84 Long term (current) use of oral hypoglycemic drugs
CPT/HCPCS: 36415; 74176; 80048; 80053; 81001; 82962; 83690; 83735; 84443; 85025; 85048; 87045; 87081; 87427; 87493; G0378; J1815; J2405; J2470